=== PATIENT | female | born 1975 | race Caucasian/White ===

== ENCOUNTER 2017-11-20 21:06 | Emergency (ER) ==
[2017-11-20 21:17] VITALS: BP 133/98; TEMP 97.9; BMI 17.4
[2017-11-20] MEDS ORDERED: DILAUDID 2 MG/ML SYRINGE IM STA (21:31)
[2017-11-20] MEDS ORDERED: PHENERGAN 25 MG/ML VIAL IM STA (21:31)
--- NOTE | 2017-11-20 21:54 | CT ---
EXAM: CT of the abdomen pelvis without contrast History: Abdominal pain and nausea, history of chronic pancreatitis. Comparison: CT abdomen pelvis 06/15/2015 Technique: Multiplanar CT images through the upper abdomen pelvis were obtained without the administr ation of IV contrast Findings: Lung bases are clear. No acute osseous abnormalities. Status post cholecystectomy. No focal liver or splenic lesions. No renal stones and no hydronephros is. The appendix is normal. Pancreatic calcifications. Pancreatic duct is dilated in the the pancr eatic body measuring up to 7 mm in caliber. No polly peripancreatic inflammation. Adrenal glands are unremarkable. No dilated loops of bowel. Bladder is not well distended. No focal bladder wall thi ckening. Uterus is not seen. No free air and no ascites. No inflammatory stranding. Impression: 1. No acute intra-abdominal or pelvic process. 2. Pancreatic calcifications consistent with chronic pancreatitis. 3. Dilated pancreatic duct consistent with sequelae of chronic pancreatitis with probable pancreatic duct stricture or calculus causing the duct obstruction.
--- NOTE | 2017-11-20 22:18 | ED.PDOC ---
General ED Provider: Dr. TIMBO AMADOR-ER Chief Complaint: Abdominal Pain Stated Complaint: im hurting and its my pancreatitis Time Seen by Physician: 21:10 Mode of Arrival: Walk-In Information Source: Patient Exam Limitations: No limitations Nursing and Triage Documentation Reviewed and Agree: Yes Does patient meet sepsis criteria?: No System Inflammatory Response Syndrome: Not Applicable Sepsis Protocol: For patient's 13 years and over: Temp is 96.8 and below OR 101 and greater Pulse >90 BPM Resp >20/minute Acutely Altered Mental Status Are patient's symptoms suggestive of a new infection, such as: -Pneumonia -Skin, Soft Tissue -Endocarditis -UTI -Bone, Joint Infection -Implantable Device -Acute Abdominal Infection -Wound Infection -Meningitis -Blood Stream Catheter Infection -Unknown GI Complaint Exam - Abdominal Pain Complaint/Exam Onset: Gradual Duration: several days Symptoms Are: Still present Timing: Constant Initial Severity: Severe Location of Pain: Diffuse Character: Reports: Dull, Aching, Cramping Aggravating: Reports: None Alleviating: Reports: Spontaneous resolution Associated Signs and Symptoms: Reports: Nausea Differential Diagnoses: Bowel Obstruction, Constipation, Pancreatitis, Ureteral Stone, UTI Quality Indicator For Non-Traumatic Chest Pain/Syncope: EKG Performed Review of Systems - Review Of Systems Constitutional: Reports: No symptoms Eyes: Reports: No symptoms Ears, Nose, Mouth, Throat: Reports: No symptoms Respiratory: Reports: No symptoms Cardiac: Reports: No symptoms GI: Reports: Abdominal pain : Reports: No symptoms Musculoskeletal: Reports: No symptoms Skin: Reports: No symptoms Neurological: Reports: No symptoms Endocrine: Reports: No symptoms Hematologic/Lymphatic: Reports: No symptoms All Other Systems: Reviewed and Negative Past Medical History - Past Medical History Previously Healthy: No Endocrine: Reports: Unknown Cardiovascular: Reports: Unknown Respiratory: Reports: Unknown Hematological: Reports: Unknown Gastrointestinal: Reports: Unknown Genitourinary: Reports: Unknown Neuro/Psych: Reports: Unknown Musculoskeletal: Reports: Unknown Cancer: Reports: Unknown Last Menstrual Period: 2001 HYST. - Surgical History General Surgical History: Reports: Unknown - Family History Family History: Reports: Unknown - Social History Smoking Status: Current every day smoker, Light tobacco smoker Hx Substance Use: No Alcohol Screening: None - Immunizations Tetanus Shot up to Date: Yes Physical Exam - Physical Exam Appearance: Well-appearing, No pain distress, Well-nourished Pain Distress: Mild Eyes: [place] ENT: Ears normal, Nose normal, Oropharynx normal Neck: Supple Respiratory: Airway patent Cardiovascular: RRR, Pulses normal, No rub, No murmur GI/: Soft, Nontender, No masses, Bowel sounds normal, No Organomegaly Musculoskeletal: Normal strength, ROM intact, No edema, No calf tenderness Skin: Warm, Dry, Normal color Neurological: Sensation intact, Motor intact, Reflexes intact, Cranial nerves intact, Alert, Oriented Psychiatric: Affect appropriate, Mood appropriate Interpretation - Radiology Interpretation Radiology Interpretation By: Radiologist Radiology Results: Negative Exam Interpreted: CT Scan - EKG Interpretation Time of EKG #1: 22:18 Rate: Tachy Rhythm: Sinus Ectopy: None [place]: NL ST Segment: Normal Interpretation: sinus tachy Re-Evaluation - Re-Evaluation Time of Re-Evaluation: 22:19 Status: Improved Vital Signs Stable: Yes Pain Level: 1 Appearance: NAD Lungs: Clear Skin: Warm and Dry Neuro: Alert and Oriented X3 CV: RRR Critical Care Note - Critical Care Note Total Time (mins): 0 Course - Course Hematology/Chemistry: 11/20/17 21:43 11/20/17 21:43 Orders, Labs, Meds: Lab Review 11/20/17 11/20/17 11/20/17 21:35 21:43 21:43 WBC 13.14 H RBC 4.07 L Hgb 12.7 Hct 37.8 MCV 92.9 MCH 31.2 H MCHC 33.6 RDW Coeff of Jorje 14.7 Plt Count 432 Immature Gran % (Auto) 0.4 Neut % (Auto) 70.7 Lymph % (Auto) 20.0 [place] % (Auto) 7.8 Eos % (Auto) 0.6 Baso % (Auto) 0.5 Immature Gran # (Auto) 0.1 Neut # (Auto) 9.3 H Lymph # (Auto) 2.6 [place] # (Auto) 1.0 Eos # (Auto) 0.1 Baso # (Auto) 0.1 Sodium 139 Potassium 3.5 Chloride 102 Carbon Dioxide 27 Anion Gap 13.5 BUN 6 L Creatinine 0.68 Estimated GFR (MDRD) 95.00 BUN/Creatinine Ratio 8.82 Glucose 128 H Calcium 9.5 Total Bilirubin 0.3 AST 13 L ALT 6 L Alkaline Phosphatase 84 Total Creatine Kinase 16 Troponin I 0.0320 Total Protein 7.7 Albumin 3.1 L Globulin 4.6 Albumin/Globulin Ratio 0.67 Amylase 27 Lipase 41 Urine Color Yellow Urine Clarity Clear Urine pH 6.5 Ur Specific [place] 1.010 Urine Protein Negative Urine Glucose (UA) Negative Urine Ketones Negative Urine Blood 1+ Urine Nitrite Negative Urine Bilirubin Negative Urine Urobilinogen 0.2 Ur Leukocyte Esterase Negative Urine Microscopic RBC 2-5 Ur Squamous Epith Cells 5-10 Orders Category Date Time Status EKG-(ED ONLY) Stat CARDIO 11/20/17 21:29 Ordered AMYLASE Stat LAB 11/20/17 21:43 Completed CBC W/ AUTO DIFF Stat LAB 11/20/17 21:43 Completed COMPREHENSIVE METABOLIC PANEL Stat LAB 11/20/17 21:43 Completed CREATINE KINASE Stat LAB 11/20/17 21:43 Completed LIPASE Stat LAB 11/20/17 21:43 Completed TROPONIN I Stat LAB 11/20/17 21:43 Completed URINALYSIS C & S IF INDICATED Stat LAB 11/20/17 21:35 Completed Hydromorphone HCl/Pf [Dilaudid 2 mg/ml Syringe] MEDS 11/20/17 21:31 Discontinued 2 mg IM ONCE STA Promethazine HCl [Phenergan 25 mg/ml Vial] MEDS 11/20/17 21:31 Discontinued 25 mg IM ONCE STA CT ABDOMEN/PELVIS WO CONTRAST Stat RADS 11/20/17 21:30 Completed Medications Discontinued Medications Generic Name Dose Route Start Last Admin Trade Name Price PRN Reason Stop Dose Admin Hydromorphone HCl 2 mg 11/20/17 21:31 11/20/17 21:37 Dilaudid 2 Mg/Ml Syringe IM 11/20/17 21:32 2 mg ONCE STA Administration Promethazine HCl 25 mg 11/20/17 21:31 11/20/17 21:38 Phenergan 25 Mg/Ml Vial IM 11/20/17 21:32 25 mg ONCE STA Administration Vital Signs: Temp Pulse Resp BP Pulse Ox 11/20/17 21:07 97.9 F 127 H 20 133/98 H 96 Departure - Departure Time of Disposition: 22:21 Disposition: HOME SELF-CARE Discharge Problem: Chronic pancreatitis Qualifiers: Pancreatitis type: unspecified pancreatitis type Qualified Code(s): K86.1 - Other chronic pancreatitis Instructions: Pancreatitis (ED) Condition: Good Pt referred to PMD for follow-up: Yes IPMP verified?: No Additional Instructions: f/u with pcp Allergies/Adverse Reactions: Allergies No Known Allergies Allergy (Unverified 11/20/17 21:17) Home Medications: Ambulatory Orders Clonazepam [Klonopin] 1 mg PO BID 11/20/17 Gabapentin 900 mg PO TID 11/20/17 Magnesium 30 mg PO DAILY 11/20/17 Ondansetron HCl [Zofran] 4 mg PO Q4-6H PRN 11/20/17 Oxycodone HCl [Roxicodone] 15 mg PO QID PRN 11/20/17 Oxycodone HCl/Acetaminophen [Percocet 10-325 mg Tablet] 10 - 325 mg PO 5XD PRN 11/20/17 Potassium Chloride [K-Dur] 40 meq PO DAILY 11/20/17 Promethazine HCl [Phenergan Tab] 25 mg PO Q4-6H PRN 11/20/17 Disposition Discussed With: Patient, Family
== END 2017-11-20 22:23 | disposition home or self-care (01) ==
LOC: ED 21:06
DX: K86.1 Other chronic pancreatitis (principal); F17.210 Nicotine dependence, cigarettes, uncomplicated
CPT/HCPCS: 36415; 80053; 81001; 82150; 82550; 83690; 84484; 85025; 93005; 93010; 96372; 99283

== ENCOUNTER 2017-11-24 23:57 | Emergency (ER) ==
[2017-11-25 00:12] VITALS: BP 112/89; TEMP 99.1; BMI 16.9
--- NOTE | 2017-11-25 00:46 | ED.PDOC ---
General ED Provider: Dr. CEDRICK LOCKE Chief Complaint: Abdominal Pain Stated Complaint: states she has had chronic pancreatitis for years was seen recently in the ER and had a complete work up. CT findings showed chronic pancreatitis. Time Seen by Physician: 00:43 Mode of Arrival: Walk-In Information Source: Patient Exam Limitations: No limitations Primary Care Provider: HEATHER PEDROZA Nursing and Triage Documentation Reviewed and Agree: Yes Does patient meet sepsis criteria?: No System Inflammatory Response Syndrome: Pulse >90 BPM Sepsis Protocol: For patient's 13 years and over: Temp is 96.8 and below OR 101 and greater Pulse >90 BPM Resp >20/minute Acutely Altered Mental Status Are patient's symptoms suggestive of a new infection, such as: -Pneumonia -Skin, Soft Tissue -Endocarditis -UTI -Bone, Joint Infection -Implantable Device -Acute Abdominal Infection -Wound Infection -Meningitis -Blood Stream Catheter Infection -Unknown Review of Systems - Review Of Systems Constitutional: Reports: No symptoms Eyes: Reports: No symptoms Ears, Nose, Mouth, Throat: Reports: No symptoms Respiratory: Reports: No symptoms Cardiac: Reports: No symptoms GI: Reports: Abdominal pain : Reports: No symptoms Musculoskeletal: Reports: No symptoms Skin: Reports: No symptoms Neurological: Reports: No symptoms Endocrine: Reports: No symptoms Hematologic/Lymphatic: Reports: No symptoms All Other Systems: Reviewed and Negative Past Medical History - Past Medical History Previously Healthy: No Endocrine: Reports: Unknown Cardiovascular: Reports: Unknown Respiratory: Reports: Unknown Hematological: Reports: Unknown Gastrointestinal: Reports: Unknown Genitourinary: Reports: Unknown Neuro/Psych: Reports: Unknown Musculoskeletal: Reports: Unknown Cancer: Reports: Unknown Last Menstrual Period: 2001 HYST - Surgical History General Surgical History: Reports: Unknown - Family History Family History: Reports: Unknown - Social History Smoking Status: Current every day smoker, Light tobacco smoker Hx Substance Use: No Alcohol Screening: None - Immunizations Tetanus Shot up to Date: Yes Physical Exam - Physical Exam Appearance: Ill-appearing, Thin Pain Distress: Moderate Neck: Supple Respiratory: Airway patent, Breath sounds clear, Breath sounds equal, Respirations nonlabored Cardiovascular: Tachycardia GI/: Soft, No masses, Tender Neurological: Sensation intact, Alert, Oriented Psychiatric: Anxious Critical Care Note - Critical Care Note Total Time (mins): 0 Comments: Refuses To try Toradol, Bentyl, zofran, only wants Dilaudid which she got last vist states she drove here passing a local ER because it is chrome cleaner wants to get Dilaudid like last time States symptoms area similar to last visit two days ago. Course - Course Vital Signs: Temp Pulse Resp BP Pulse Ox 11/25/17 00:03 99.1 F 143 H 20 112/89 97 Departure - Departure Time of Disposition: 00:45 Disposition: HOME SELF-CARE Discharge Problem: Abdominal pain, Chronic pancreatitis Instructions: Pancreatitis (ED) Condition: Fair Pt referred to PMD for follow-up: Yes IPMP verified?: No Additional Instructions: Follow up with PCP in 1-2 days continue home medications as prescribed Allergies/Adverse Reactions: Allergies No Known Allergies Allergy (Verified 11/25/17 00:11) Home Medications: Ambulatory Orders Clonazepam [Klonopin] 1 mg PO BID 11/20/17 Gabapentin 900 mg PO TID 11/20/17 Magnesium 30 mg PO DAILY 11/20/17 Ondansetron HCl [Zofran] 4 mg PO Q4-6H PRN 11/20/17 Oxycodone HCl [Roxicodone] 15 mg PO QID PRN 11/20/17 Oxycodone HCl/Acetaminophen [Percocet 10-325 mg Tablet] 10 - 325 mg PO 5XD PRN 11/20/17 Potassium Chloride [K-Dur] 40 meq PO DAILY 11/20/17 Promethazine HCl [Phenergan Tab] 25 mg PO Q4-6H PRN 11/20/17 Disposition Discussed With: Patient, Family
== END 2017-11-25 00:50 | disposition home or self-care (01) ==
LOC: ED 23:57
DX: K86.1 Other chronic pancreatitis (principal); F17.210 Nicotine dependence, cigarettes, uncomplicated
CPT/HCPCS: 99283

== ENCOUNTER 2017-12-13 16:03 | Emergency (ER) ==
[2017-12-13 16:03] VITALS: BMI 17.4
[2017-12-13 16:07] VITALS: BP 123/86; TEMP 98.2
== END 2017-12-13 16:18 | disposition left against medical advice (07) ==
LOC: ED 16:03
DX: R10.9 Unspecified abdominal pain (principal)

== ENCOUNTER 2017-12-23 23:32 | Emergency (ER) ==
[2017-12-23 23:44] VITALS: BP 104/71; TEMP 99.7; BMI 17.9
[2017-12-23] MEDS ORDERED: SODIUM CHLORIDE 1,000 ML IV STA (23:57)
[2017-12-24] MEDS ORDERED: NUBAIN IVP STA (00:26)
--- NOTE | 2017-12-24 00:33 | ED.PDOC ---
General ED Provider: Dr. CEDRICK LOCKE Chief Complaint: Abdominal Pain Stated Complaint: I have pancreatitis attack Time Seen by Physician: 00:31 Mode of Arrival: Walk-In Information Source: Patient Exam Limitations: No limitations Primary Care Provider: HEATHER PEDROZA Nursing and Triage Documentation Reviewed and Agree: No Does patient meet sepsis criteria?: No If yes, has appropriate treatment been initiated?: No System Inflammatory Response Syndrome: Not Applicable Sepsis Protocol: For patient's 13 years and over: Temp is 96.8 and below OR 101 and greater Pulse >90 BPM Resp >20/minute Acutely Altered Mental Status Are patient's symptoms suggestive of a new infection, such as: -Pneumonia -Skin, Soft Tissue -Endocarditis -UTI -Bone, Joint Infection -Implantable Device -Acute Abdominal Infection -Wound Infection -Meningitis -Blood Stream Catheter Infection -Unknown GI Complaint Exam - Abdominal Pain Complaint/Exam Onset: Gradual Duration: 2 days Symptoms Are: Still present Timing: Constant Review of Systems - Review Of Systems Constitutional: Reports: No symptoms Eyes: Reports: No symptoms Ears, Nose, Mouth, Throat: Reports: No symptoms Respiratory: Reports: No symptoms Cardiac: Reports: No symptoms GI: Reports: Abdominal pain : Reports: No symptoms Musculoskeletal: Reports: No symptoms Skin: Reports: No symptoms Neurological: Reports: No symptoms Endocrine: Reports: No symptoms Hematologic/Lymphatic: Reports: No symptoms All Other Systems: Reviewed and Negative Past Medical History - Past Medical History Previously Healthy: No Endocrine: Reports: Unknown Cardiovascular: Reports: Unknown Respiratory: Reports: Unknown Hematological: Reports: None Gastrointestinal: Reports: Pancreatitis (chronic ) Genitourinary: Reports: None Neuro/Psych: Reports: Anxiety, Depression Musculoskeletal: Reports: None Cancer: Reports: Unknown Last Menstrual Period: 2001 - Surgical History General Surgical History: Reports: Cholecystectomy, Stent Placement (on pancrease), Other (feeding Tube) - Family History Family History: Reports: Unknown - Social History Smoking Status: Current every day smoker, Light tobacco smoker Hx Substance Use: No Alcohol Screening: None - Immunizations Tetanus Shot up to Date: Yes Physical Exam - Physical Exam Appearance: Ill-appearing, Thin Ill-appearing: Moderate Pain Distress: Severe Neck: Supple Respiratory: Airway patent, Breath sounds clear, Breath sounds equal, Respirations nonlabored Cardiovascular: Pulses normal, No rub, No murmur, Tachycardia GI/: Soft, Tender Musculoskeletal: Normal strength, ROM intact, No edema, No calf tenderness Skin: Warm, Dry, Normal color Neurological: Sensation intact, Motor intact, Reflexes intact, Cranial nerves intact, Alert, Oriented Psychiatric: Anxious Critical Care Note - Critical Care Note Total Time (mins): 0 Course - Course Hematology/Chemistry: 12/23/17 00:15 12/23/17 00:15 Orders, Labs, Meds: Lab Review 12/23/17 12/23/17 00:15 00:15 WBC 11.48 H RBC 3.88 L Hgb 12.0 Hct 36.5 L MCV 94.1 MCH 30.9 MCHC 32.9 RDW Coeff of Jorje 15.2 H Plt Count 276 Immature Gran % (Auto) 0.2 Neut % (Auto) 61.3 Lymph % (Auto) 31.4 [place] % (Auto) 5.8 Eos % (Auto) 0.6 Baso % (Auto) 0.7 Immature Gran # (Auto) 0.0 Neut # (Auto) 7.0 H Lymph # (Auto) 3.6 H [place] # (Auto) 0.7 Eos # (Auto) 0.1 Baso # (Auto) 0.1 Sodium 136 Potassium 3.4 L Chloride 103 Carbon Dioxide 27 Anion Gap 9.4 BUN 6 L Creatinine 0.62 Estimated GFR (MDRD) 106.00 BUN/Creatinine Ratio 9.67 Glucose 94 Calcium 9.2 Total Bilirubin 0.4 AST 22 ALT 13 Alkaline Phosphatase 70 Total Protein 6.9 Albumin 3.0 L Globulin 3.9 Albumin/Globulin Ratio 0.77 Amylase 12 L Lipase 15 Orders Category Date Time Status ED IV/MEDIPORT/POWERPORT .ONCE EMERGENCY 12/23/17 23:57 Active AMYLASE Stat LAB 12/23/17 00:15 Completed CBC W/ AUTO DIFF Stat LAB 12/23/17 00:15 Completed COMPREHENSIVE METABOLIC PANEL Stat LAB 12/23/17 00:15 Completed LIPASE Stat LAB 12/23/17 00:15 Completed 0.9 % Sodium Chloride [Saline Flush] MEDS 12/23/17 23:57 Discontinued 1 syr IVF PRN PRN Nalbuphine HCl [Nubain] MEDS 12/24/17 00:26 Discontinued 10 mg IVP ONCE STA Ondansetron HCl/Pf [Zofran 4 mg/2 ml] MEDS 12/24/17 00:41 Discontinued 4 mg IVP ONCE STA Sodium Chloride 0.9% [Sodium Chloride] 1,000 ml MEDS 12/23/17 23:57 Discontinued IV BOLUS Medications Discontinued Medications Generic Name Dose Route Start Last Admin Trade Name Maksimq PRN Reason Stop Dose Admin Sodium Chloride 1,000 mls @ 1,000 mls/hr 12/23/17 23:57 12/24/17 00:15 Sodium Chloride IV 12/24/17 00:56 1,000 mls/hr BOLUS STA Administration Nalbuphine HCl 10 mg 12/24/17 00:26 12/24/17 00:33 Nubain IVP 12/24/17 00:27 10 mg ONCE STA Administration Ondansetron HCl 4 mg 12/24/17 00:41 12/24/17 00:46 Zofran 4 Mg/2 Ml IVP 12/24/17 00:42 4 mg ONCE STA Administration Sodium Chloride 1 syr 12/23/17 23:57 Saline Flush IVF PRN PRN To flush IV Vital Signs: Temp Pulse Resp BP Pulse Ox 12/23/17 23:36 99.7 F H 129 H 22 104/71 98 Departure - Departure Time of Disposition: 01:30 Disposition: HOME SELF-CARE Discharge Problem: Abdominal pain, Chronic abdominal pain Chronic pancreatitis Qualifiers: Pancreatitis type: unspecified pancreatitis type Qualified Code(s): K86.1 - Other chronic pancreatitis Instructions: Pancreatitis (ED) Condition: Stable Pt referred to PMD for follow-up: No IPMP verified?: No Additional Instructions: Push fluids Follow up with PCP in 3 days Allergies/Adverse Reactions: Allergies No Known Allergies Allergy (Verified 12/13/17 16:09) Home Medications: Ambulatory Orders Clonazepam [Klonopin] 1 mg PO BID 11/20/17 Gabapentin 900 mg PO TID 11/20/17 Magnesium 30 mg PO DAILY 11/20/17 Ondansetron HCl [Zofran] 4 mg PO Q4-6H PRN 11/20/17 Oxycodone HCl [Roxicodone] 15 mg PO QID PRN 11/20/17 Oxycodone HCl/Acetaminophen [Percocet 10-325 mg Tablet] 10 - 325 mg PO 5XD PRN 11/20/17 Potassium Chloride [K-Dur] 40 meq PO DAILY 11/20/17 Disposition Discussed With: Patient, Family
[2017-12-24] MEDS ORDERED: ZOFRAN 4 MG/2 ML IVP STA (00:41)
== END 2017-12-24 01:30 | disposition home or self-care (01) ==
LOC: ED 23:32
DX: K86.1 Other chronic pancreatitis (principal); F17.210 Nicotine dependence, cigarettes, uncomplicated
CPT/HCPCS: 36415; 80053; 82150; 83690; 85025; 96361; 96374; 96375; 99283

== ENCOUNTER 2018-01-24 14:57 | Emergency (ER) | payer MEDICAID, OTHER ==
[2018-01-24 15:00] VITALS: BP 161/115; TEMP 98.3; BMI 17.8
[2018-01-24] MEDS ORDERED: PEPCID IVP STA (16:18)
[2018-01-24] MEDS ORDERED: SODIUM CHLORIDE 500 ML IV STA (16:18)
[2018-01-24] MEDS ORDERED: ZOFRAN 4 MG/2 ML IVP STA (16:18)
[2018-01-24] MEDS ORDERED: DILAUDID 1 MG/ML SYRINGE IVP STA (16:19)
--- NOTE | 2018-01-24 16:21 | ED.PDOC ---
General ED Provider: Dr. TIMBO POPE Chief Complaint: Abdominal Pain Stated Complaint: Severe abdominal pain associated with chronic pancreatitis. Has been experiencing worsening pain with recurrent nausea and vomiting. Also out of her pain meds. Time Seen by Physician: 15:30 Mode of Arrival: Walk-In Information Source: Patient Exam Limitations: No limitations Primary Care Provider: HEATHER PEDROZA Nursing and Triage Documentation Reviewed and Agree: Yes Does patient meet sepsis criteria?: No System Inflammatory Response Syndrome: Pulse >90 BPM, Not Applicable Sepsis Protocol: For patient's 13 years and over: Temp is 96.8 and below OR 101 and greater Pulse >90 BPM Resp >20/minute Acutely Altered Mental Status Are patient's symptoms suggestive of a new infection, such as: -Pneumonia -Skin, Soft Tissue -Endocarditis -UTI -Bone, Joint Infection -Implantable Device -Acute Abdominal Infection -Wound Infection -Meningitis -Blood Stream Catheter Infection -Unknown GI Complaint Exam - Abdominal Pain Complaint/Exam Onset: Sudden Symptoms Are: Still present Timing: Intermittent Initial Severity: Severe Current Severity: Moderate Location of Pain: Discrete, LUQ, Epigastric Radiates To: Reports: Back Character: Reports: Dull, Aching, Throbbing Aggravating: Reports: Movement Alleviating: Reports: None Associated Signs and Symptoms: Reports: Nausea, Vomiting Review of Systems - Review Of Systems Constitutional: Reports: No symptoms Eyes: Reports: No symptoms Ears, Nose, Mouth, Throat: Reports: No symptoms Respiratory: Reports: No symptoms Cardiac: Reports: No symptoms GI: Reports: Abdomen distended, Abdominal pain, Difficulty swallowing, Nausea, Poor appetite, Poor fluid intake, Vomiting : Reports: No symptoms Musculoskeletal: Reports: No symptoms Skin: Reports: No symptoms Neurological: Reports: No symptoms Endocrine: Reports: No symptoms Hematologic/Lymphatic: Reports: No symptoms All Other Systems: Reviewed and Negative Past Medical History - Past Medical History Previously Healthy: No Endocrine: Reports: Unknown Cardiovascular: Reports: Unknown Respiratory: Reports: Unknown Hematological: Reports: None Gastrointestinal: Reports: Pancreatitis (chronic ) Genitourinary: Reports: None Neuro/Psych: Reports: Anxiety, Depression Musculoskeletal: Reports: None Cancer: Reports: Unknown Last Menstrual Period: none - Surgical History General Surgical History: Reports: Cholecystectomy, Stent Placement (on pancrease), Other (feeding Tube) - Family History Family History: Reports: Unknown - Social History Smoking Status: Current every day smoker, Light tobacco smoker Hx Substance Use: No Alcohol Screening: None Physical Exam - Physical Exam Appearance: Ill-appearing, Thin Ill-appearing: Mild Pain Distress: Moderate Eyes: [place], EOMI, Conjunctiva clear ENT: Ears normal, Nose normal, Oropharynx normal Neck: Supple Respiratory: Airway patent, Breath sounds clear, Breath sounds equal, Respirations nonlabored Cardiovascular: RRR, Pulses normal, No rub, No murmur GI/: Soft, Tender, Bowel sounds hyperactive Musculoskeletal: Normal strength, ROM intact, No edema, No calf tenderness Skin: Warm, Dry, Normal color Neurological: Sensation intact, Motor intact, Reflexes intact, Cranial nerves intact, Alert, Oriented Psychiatric: Affect appropriate, Mood appropriate Interpretation - Radiology Interpretation Radiology Interpretation By: Radiologist Radiology Results: No acute changes Exam Interpreted: CT Scan Re-Evaluation - Re-Evaluation Time of Re-Evaluation: 20:15 (Feeling much better) Status: Improved Vital Signs Stable: Yes Appearance: NAD Lungs: Clear Skin: Warm and Dry Additional Comments: Recommend admission for continued fluid administration. Pt req discharge Critical Care Note - Critical Care Note Total Time (mins): 60 Course - Course Hematology/Chemistry: 01/24/18 16:37 01/24/18 20:17 Orders, Labs, Meds: Lab Review 01/24/18 01/24/18 01/24/18 16:37 16:37 16:37 WBC 9.49 RBC 3.80 L Hgb 11.7 L Hct 35.8 L MCV 94.2 MCH 30.8 MCHC 32.7 RDW Coeff of Jorje 14.6 Plt Count 323 Immature Gran % (Auto) 0.3 Neut % (Auto) 64.1 Lymph % (Auto) 26.4 [place] % (Auto) 7.2 Eos % (Auto) 1.4 Baso % (Auto) 0.6 Immature Gran # (Auto) 0.0 Neut # (Auto) 6.1 Lymph # (Auto) 2.5 [place] # (Auto) 0.7 Eos # (Auto) 0.1 Baso # (Auto) 0.1 Sodium 137.3 Potassium 2.71 L* Chloride 98.2 Carbon Dioxide 34.9 H Anion Gap 6.91 BUN 2.2 L Creatinine 0.50 L Estimated GFR (MDRD) 136.00 BUN/Creatinine Ratio 4.40 Glucose 102.4 Lactic Acid Calcium 8.92 Magnesium Total Bilirubin 0.14 L AST 17.5 ALT 7.6 Alkaline Phosphatase 91.1 Total Protein 6.88 Albumin 3.55 Globulin 3.33 Albumin/Globulin Ratio 1.06 Amylase 39.9 Lipase 78.6 Procalcitonin 0.17 01/24/18 01/24/18 01/24/18 16:37 16:37 20:17 WBC RBC Hgb Hct MCV MCH MCHC RDW Coeff of Jorje Plt Count Immature Gran % (Auto) Neut % (Auto) Lymph % (Auto) [place] % (Auto) Eos % (Auto) Baso % (Auto) Immature Gran # (Auto) Neut # (Auto) Lymph # (Auto) [place] # (Auto) Eos # (Auto) Baso # (Auto) Sodium Potassium 3.19 L Chloride Carbon Dioxide Anion Gap BUN Creatinine Estimated GFR (MDRD) BUN/Creatinine Ratio Glucose Lactic Acid 0.85 Calcium Magnesium 1.67 Total Bilirubin AST ALT Alkaline Phosphatase Total Protein Albumin Globulin Albumin/Globulin Ratio Amylase Lipase Procalcitonin Orders Category Date Time Status EKG-(ED ONLY) Stat CARDIO 01/24/18 16:16 Completed IV [ED IV/MEDIPORT/POWERPORT] .ONCE EMERGENCY 01/24/18 16:16 Active AMYLASE Stat LAB 01/24/18 16:37 Completed BLOOD CULTURE (ED ONLY) Stat LAB 01/24/18 16:37 Received CBC W/ AUTO DIFF Stat LAB 01/24/18 16:37 Completed CMP [COMPREHENSIVE METABOLIC PANEL] Stat LAB 01/24/18 16:37 Completed LACTIC ACID Stat LAB 01/24/18 16:37 Completed LIPASE Stat LAB 01/24/18 16:37 Completed MAGNESIUM Stat LAB 01/24/18 16:37 Completed POTASSIUM Stat LAB 01/24/18 20:17 Completed PROCALCITONIN Stat LAB 01/24/18 16:37 Completed 0.9 % Sodium Chloride [Saline Flush] MEDS 01/24/18 16:16 Discontinued 1 syr IVF PRN PRN Famotidine Inj [Pepcid] MEDS 01/24/18 16:18 Discontinued 20 mg IVP ONCE STA Hydromorphone HCl [Dilaudid 1 mg/ml Syringe] MEDS 01/24/18 19:02 Discontinued 2 mg IM ONCE STA Hydromorphone HCl [Dilaudid 1 mg/ml Syringe] MEDS 01/24/18 16:19 Discontinued 2 mg IVP ONCE STA Ondansetron HCl/Pf [Zofran 4 mg/2 ml] MEDS 01/24/18 16:18 Discontinued 4 mg IVP ONCE STA Oxycodone-Acetaminophen 10-325 [Percocet 10-325] MEDS 01/24/18 18:56 Stop Req 1 tab PO ONCE STA Potassium Chloride [Potassium Chloride Premix Run] 20 MEDS 01/24/18 17:02 Discontinued meq Premix 100 ml Water 2 bag IV ONCE Potassium Chloride [Potassium Chloride Premix [place]] 200 MEDS 01/24/18 17:07 Discontinued ml IV .STK-MED Sodium Chloride 0.9% [Sodium Chloride] 500 ml MEDS 01/24/18 16:[address] ABDOMEN/PELVIS WO CONTRAST Stat RADS 01/24/18 16:16 Completed Medications Discontinued Medications Generic Name Dose Route Start Last Admin Trade Name Freq PRN Reason Stop Dose Admin Famotidine 20 mg 01/24/18 16:18 01/24/18 16:53 Pepcid IVP 01/24/18 16:19 20 mg ONCE STA Administration Hydromorphone HCl 2 mg 01/24/18 16:19 01/24/18 16:55 Dilaudid 1 Mg/Ml Syringe IVP 01/24/18 16:20 2 mg ONCE STA Administration Hydromorphone HCl 2 mg 01/24/18 19:02 01/24/18 19:10 Dilaudid 1 Mg/Ml Syringe IM 01/24/18 19:03 2 mg ONCE STA Administration Sodium Chloride 500 mls @ 500 mls/hr 01/24/18 16:18 01/24/18 16:52 Sodium Chloride IV 01/24/18 17:17 500 mls/hr BOLUS STA Administration Potassium Chloride 20 meq/ 200 mls @ 100 mls/hr 01/24/18 17:02 01/24/18 17:13 Sterile Water IV 01/24/18 19:01 100 mls/hr ONCE STA Administration Ondansetron HCl 4 mg 01/24/18 16:18 01/24/18 16:52 Zofran 4 Mg/2 Ml IVP 01/24/18 16:19 4 mg ONCE STA Administration Oxycodone/Acetaminophen 1 tab 01/24/18 18:56 01/24/18 19:12 Percocet 10-325 PO 01/24/18 18:57 Not Given ONCE STA Sodium Chloride 1 syr 01/24/18 16:16 01/24/18 16:52 Saline Flush IVF 1 syr PRN PRN Administration To flush IV Vital Signs: Temp Pulse Resp BP Pulse Ox 01/24/18 14:57 98.3 F 122 H 18 161/115 H 97 Departure - Departure Time of Disposition: 19:50 Disposition: HOME SELF-CARE Discharge Problem: Chronic pancreatitis, Chronic abdominal pain, Hypokalemia Instructions: Pancreatitis (ED), Hypokalemia (ED) Condition: Good Pt referred to PMD for follow-up: Yes IPMP verified?: No Additional Instructions: Meds refilled Take Potasium and supplemental Magnesium to take and follow up pcp next weed for recheck Prescriptions: Magnesium Oxide [Mag-Oxide] 200 mg PO DAILY #15 tablet Ondansetron [Zofran Odt] 4 mg PO Q8H PRN #10 tab.rapdis PRN Reason: Nausea vomiting Oxycodone HCl/Acetaminophen [Oxycodone-Acetaminophen 10-325] 1 each PO Q6-8H PRN #10 tablet PRN Reason: pancreatic/ abdominal pain Potassium Chloride [K-Dur] 20 meq PO DAILY #15 tab Allergies/Adverse Reactions: Allergies No Known Allergies Allergy (Verified 01/24/18 15:00) Home Medications: Ambulatory Orders Clonazepam [Klonopin] 1 mg PO BID 11/20/17 Gabapentin 900 mg PO TID 11/20/17 Magnesium 30 mg PO DAILY 11/20/17 Ondansetron HCl [Zofran] 4 mg PO Q4-6H PRN 11/20/17 Oxycodone HCl [Roxicodone] 15 mg PO QID PRN 11/20/17 Oxycodone HCl/Acetaminophen [Percocet 10-325 mg Tablet] 10 - 325 mg PO 5XD PRN 11/20/17 Potassium Chloride [K-Dur] 40 meq PO DAILY 11/20/17 Magnesium Oxide [Mag-Oxide] 200 mg PO DAILY #15 tablet 01/24/18 Ondansetron [Zofran Odt] 4 mg PO Q8H PRN #10 tab.rapdis 01/24/18 Oxycodone HCl/Acetaminophen [Oxycodone-Acetaminophen 10-325] 1 each PO Q6-8H PRN #10 tablet 01/24/18 Potassium Chloride [K-Dur] 20 meq PO DAILY #15 tab 01/24/18 Disposition Discussed With: Patient, Family ED Physician Progress Note ED Physician Progress Note: [] 01/24/18 20:00 Patient treated for her multiple medical issues including abdominal pain , hypokalemia . Recommeded admission and Dr xie accepted Patient refused to be admitted and stated she had dealt with low K+ previously and requested prescription for home Has received KCL infusion 20 mEq here and will be rechecked before discharge 01/24/18 20:03 Explained risk involved with inadequate potassium level including cardiac arrhythmias that could lead to . Aknowledges the risk and will take KCL as outpatient. Needs to have Potassium level rechecked at physicians office on Friday
--- NOTE | 2018-01-24 16:42 | CT ---
EXAM: CT of the abdomen pelvis without contrast History: Right upper quadrant and left upper quadrant abdominal pain, vomiting and diarrhea. Comparison: CT abdomen pelvis 11/20/2017 Technique: Multiplanar CT images through the abdomen pelvis were obtained without the administration of IV contrast Findings: Lung bases are clear. No acute osseous abnormalities. Status post cholecystectomy. No focal liver or splenic lesions. Atherosclerotic vascular calcificat ions. No change in the pancreatic calcifications and pancreatic duct dilatation. No polly peripancr eatic inflammation. Adrenal glands are unremarkable. No dilated loops of bowel. No free air and no ascites. No bladder wall thickening. Uterus is not seen and likely has been surgically removed. N o perirectal inflammation. No free air and no ascites. Scattered colonic stool. The visualized kayla endix is not dilated or inflamed. No renal or ureteral stones and no hydronephrosis. Impression: 1. No acute intra-abdominal or pelvic process. 2. Chronic pancreatitis
[2018-01-24] MEDS ORDERED: POTASSIUM CHLORIDE PREMIX RUN 20 MEQ in PREMIX 100 ML WATER 2 BAG IV STA (17:02)
[2018-01-24] MEDS ORDERED: POTASSIUM CHLORIDE PREMIX RUN 200 ML IV ONE (17:07)
[2018-01-24] MEDS ORDERED: PERCOCET 10-325 PO STA (18:56)
[2018-01-24] MEDS ORDERED: DILAUDID 1 MG/ML SYRINGE IM STA (19:02)
== END 2018-01-24 20:33 | disposition home or self-care (01) ==
LOC: ED 14:57
DX: K86.1 Other chronic pancreatitis (principal); E87.6 Hypokalemia; R10.9 Unspecified abdominal pain; G89.29 Other chronic pain; R11.2 Nausea with vomiting, unspecified; F17.210 Nicotine dependence, cigarettes, uncomplicated; Z79.899 Other long term (current) drug therapy
CPT/HCPCS: 36415; 80053; 82150; 83605; 83690; 83735; 84132; 84145; 85025; 87040; 93005; 93010; 96361; 96365; 96366; 96375; 99284

== ENCOUNTER 2018-02-04 13:48 | Emergency (ER) ==
[2018-02-04 13:52] VITALS: BP 146/88; TEMP 97.7; BMI 18.3
[2018-02-04] MEDS ORDERED: SODIUM CHLORIDE 1,000 ML IV STA (14:54)
[2018-02-04] MEDS ORDERED: DILAUDID 1 MG/ML SYRINGE IVP STA ×3 (14:55→16:08)
[2018-02-04] MEDS ORDERED: ZOFRAN 4 MG/2 ML IVP STA ×2 (14:55→15:06)
--- NOTE | 2018-02-04 14:57 | ED.PDOC ---
General ED Provider: Dr. [place] ABERNATHY Chief Complaint: Abdominal Pain Stated Complaint: Nausea, Vomiting; history of Pancreatitis - acute abdominal pain Time Seen by Physician: 14:51 Mode of Arrival: Walk-In Information Source: Family Exam Limitations: No limitations Primary Care Provider: HEATHER PEDROZA Nursing and Triage Documentation Reviewed and Agree: Yes Does patient meet sepsis criteria?: No System Inflammatory Response Syndrome: Not Applicable Sepsis Protocol: For patient's 13 years and over: Temp is 96.8 and below OR 101 and greater Pulse >90 BPM Resp >20/minute Acutely Altered Mental Status Are patient's symptoms suggestive of a new infection, such as: -Pneumonia -Skin, Soft Tissue -Endocarditis -UTI -Bone, Joint Infection -Implantable Device -Acute Abdominal Infection -Wound Infection -Meningitis -Blood Stream Catheter Infection -Unknown Review of Systems - Review Of Systems Constitutional: Reports: Malaise, Weakness GI: Reports: Abdominal pain (states same as her pancreeatitis attacks) All Other Systems: Reviewed and Negative Past Medical History - Past Medical History Previously Healthy: No Endocrine: Reports: Unknown Cardiovascular: Reports: Unknown Respiratory: Reports: Unknown Hematological: Reports: None Gastrointestinal: Reports: Pancreatitis (chronic ) Genitourinary: Reports: None Neuro/Psych: Reports: Anxiety, Depression Musculoskeletal: Reports: None Cancer: Reports: Unknown Last Menstrual Period: 10 years ago - Surgical History General Surgical History: Reports: Cholecystectomy, Stent Placement (on pancrease), Other (feeding Tube) - Family History Family History: Reports: Unknown - Social History Smoking Status: Current every day smoker Hx Substance Use: No Alcohol Screening: None - Immunizations Tetanus Shot up to Date: Yes Physical Exam - Physical Exam Appearance: Ill-appearing (chronic appearing) Ill-appearing: Moderate Pain Distress: Moderate Respiratory: Airway patent, Breath sounds clear, Respirations nonlabored Cardiovascular: RRR, Pulses normal Skin: Warm, Dry, Pale Neurological: Sensation intact, Motor intact Psychiatric: Affect appropriate, Mood appropriate Critical Care Note - Critical Care Note Total Time (mins): 25 Course - Course Hematology/Chemistry: 02/04/18 15:05 02/04/18 15:05 Orders, Labs, Meds: Lab Review 02/04/18 02/04/18 15:05 15:05 WBC 5.92 RBC 3.75 L Hgb 11.4 L Hct 35.0 L MCV 93.3 MCH 30.4 MCHC 32.6 RDW Coeff of Jorje 14.6 Plt Count 294 Immature Gran % (Auto) 0.2 Neut % (Auto) 46.4 Lymph % (Auto) 39.7 [place] % (Auto) 10.5 H Eos % (Auto) 2.4 Baso % (Auto) 0.8 Immature Gran # (Auto) 0.0 Neut # (Auto) 2.8 Lymph # (Auto) 2.4 [place] # (Auto) 0.6 Eos # (Auto) 0.1 Baso # (Auto) 0.1 Sodium 139.0 Potassium 3.21 L Chloride 105.5 Carbon Dioxide 29.3 Anion Gap 7.41 BUN 7.8 Creatinine 0.55 L Estimated GFR (MDRD) 122.00 BUN/Creatinine Ratio 14.18 Glucose 86.8 Calcium 8.80 Total Bilirubin 0.41 AST 52.1 H ALT 23.1 Alkaline Phosphatase 83.0 Total Protein 7.06 Albumin 3.59 Globulin 3.47 Albumin/Globulin Ratio 1.03 Lipase 22.7 L Orders Category Date Time Status CBC W/ AUTO DIFF Stat LAB 02/04/18 15:05 Completed COMPREHENSIVE METABOLIC PANEL Stat LAB 02/04/18 15:05 Completed LIPASE Stat LAB 02/04/18 15:05 Completed Hydromorphone HCl [Dilaudid 1 mg/ml Syringe] MEDS 02/04/18 15:06 Discontinued 1 mg IVP ONCE STA Hydromorphone HCl [Dilaudid 1 mg/ml Syringe] MEDS 02/04/18 16:08 Discontinued 1 mg IVP ONCE STA Ondansetron HCl/Pf [Zofran 4 mg/2 ml] MEDS 02/04/18 15:06 Discontinued 4 mg IVP ONCE STA Sodium Chloride 0.9% [Sodium Chloride] 1,000 ml MEDS 02/04/18 14:54 Discontinued IV BOLUS Medications Discontinued Medications Generic Name Dose Route Start Last Admin Trade Name Freq PRN Reason Stop Dose Admin Hydromorphone HCl 1 mg 02/04/18 15:06 02/04/18 15:25 Dilaudid 1 Mg/Ml Syringe IVP 02/04/18 15:07 1 mg ONCE STA Administration Hydromorphone HCl 1 mg 02/04/18 16:08 02/04/18 16:17 Dilaudid 1 Mg/Ml Syringe IVP 02/04/18 16:09 1 mg ONCE STA Administration Sodium Chloride 1,000 mls @ 1,000 mls/hr 02/04/18 14:54 02/04/18 15:23 Sodium Chloride IV 02/04/18 15:53 1,000 mls/hr BOLUS STA Administration Ondansetron HCl 4 mg 02/04/18 15:06 02/04/18 15:23 Zofran 4 Mg/2 Ml IVP 02/04/18 15:07 4 mg ONCE STA Administration Vital Signs: Temp Pulse Resp BP Pulse Ox 02/04/18 13:48 97.7 F 96 H 18 146/88 H 98 Departure - Departure Time of Disposition: 16:24 Disposition: HOME SELF-CARE Discharge Problem: Abdominal pain Instructions: Acute Abdominal Pain (ED) Condition: Stable Pt referred to PMD for follow-up: Yes (Follow up; call for appointment) IPMP verified?: No (known pain medication patient) Allergies/Adverse Reactions: Allergies No Known Allergies Allergy (Verified 01/24/18 15:00) Home Medications: Ambulatory Orders Clonazepam [Klonopin] 1 mg PO BID 11/20/17 Gabapentin 900 mg PO TID 11/20/17 Oxycodone HCl [Roxicodone] 15 mg PO QID PRN 11/20/17 Oxycodone HCl/Acetaminophen [Percocet 10-325 mg Tablet] 10 - 325 mg PO 5XD PRN 11/20/17 Potassium Chloride [K-Dur] 40 meq PO DAILY 11/20/17 Potassium Chloride [K-Dur] 20 meq PO DAILY #15 tab 01/24/18 Promethazine HCl [Phenergan Tab] 25 mg PO Q4-6H PRN 02/04/18
== END 2018-02-04 16:43 | disposition home or self-care (01) ==
LOC: ED 13:48
DX: R10.9 Unspecified abdominal pain (principal); R11.2 Nausea with vomiting, unspecified; F17.210 Nicotine dependence, cigarettes, uncomplicated
CPT/HCPCS: 36415; 80053; 83690; 85025; 96361; 96374; 96375; 96376; 99283

== ENCOUNTER 2018-02-12 15:58 | Emergency (ER) ==
[2018-02-12 16:02] VITALS: BMI 18.1
[2018-02-12] MEDS ORDERED: SODIUM CHLORIDE 1,000 ML IV STA (19:34)
[2018-02-12] MEDS ORDERED: NUBAIN IVP STA (19:34)
[2018-02-12] MEDS ORDERED: ZOFRAN 4 MG/2 ML IVP STA (19:34)
[2018-02-12] MEDS ORDERED: PROTONIX IV IVP STA (19:34)
--- NOTE | 2018-02-12 20:28 | ED.PDOC ---
General ED Provider: Dr. CEDRICK LOCKE Chief Complaint: Abdominal Pain Stated Complaint: Patient comes to the ER with a history of chronic pancreatitis with 3 day history of abdominal pain. Has been taking oxycodone without relief. Time Seen by Physician: 20:18 Mode of Arrival: Walk-In Information Source: Patient Exam Limitations: No limitations Primary Care Provider: HEATHER PEDROZA Nursing and Triage Documentation Reviewed and Agree: Yes Does patient meet sepsis criteria?: No System Inflammatory Response Syndrome: Pulse >90 BPM, Not Applicable Sepsis Protocol: For patient's 13 years and over: Temp is 96.8 and below OR 101 and greater Pulse >90 BPM Resp >20/minute Acutely Altered Mental Status Are patient's symptoms suggestive of a new infection, such as: -Pneumonia -Skin, Soft Tissue -Endocarditis -UTI -Bone, Joint Infection -Implantable Device -Acute Abdominal Infection -Wound Infection -Meningitis -Blood Stream Catheter Infection -Unknown Review of Systems - Review Of Systems Constitutional: Reports: No symptoms Eyes: Reports: No symptoms Ears, Nose, Mouth, Throat: Reports: No symptoms Respiratory: Reports: No symptoms Cardiac: Reports: No symptoms GI: Reports: Abdominal pain, Nausea, Poor appetite, Poor fluid intake, Vomiting : Reports: No symptoms Musculoskeletal: Reports: No symptoms Skin: Reports: No symptoms Neurological: Reports: No symptoms Endocrine: Reports: No symptoms Hematologic/Lymphatic: Reports: No symptoms All Other Systems: Reviewed and Negative Past Medical History - Past Medical History Previously Healthy: No Endocrine: Reports: Unknown Cardiovascular: Reports: Unknown Respiratory: Reports: Unknown Hematological: Reports: None Gastrointestinal: Reports: Pancreatitis (chronic ) Genitourinary: Reports: None Neuro/Psych: Reports: Anxiety, Depression Musculoskeletal: Reports: None Cancer: Reports: Unknown Last Menstrual Period: n/a - Surgical History General Surgical History: Reports: Cholecystectomy, Stent Placement (on pancrease), Other (feeding Tube) - Family History Family History: Reports: Unknown - Social History Smoking Status: Current every day smoker Hx Substance Use: No Alcohol Screening: None Physical Exam - Physical Exam Appearance: Ill-appearing Ill-appearing: Mild Pain Distress: Moderate Respiratory: Airway patent, Breath sounds clear, Breath sounds equal, Respirations nonlabored Cardiovascular: Pulses normal, Tachycardia GI/: Tender Musculoskeletal: Normal strength, ROM intact, No edema, No calf tenderness Skin: Warm, Dry, Normal color Neurological: Sensation intact, Motor intact, Reflexes intact, Cranial nerves intact, Alert, Oriented Psychiatric: Anxious Critical Care Note - Critical Care Note Total Time (mins): 0 Course - Course Hematology/Chemistry: 02/12/18 19:50 02/12/18 19:50 Orders, Labs, Meds: Lab Review 02/12/18 02/12/18 02/12/18 19:50 19:50 21:26 WBC 9.57 RBC 4.23 Hgb 12.8 Hct 39.0 MCV 92.2 MCH 30.3 MCHC 32.8 RDW Coeff of Jorje 14.3 Plt Count 353 Immature Gran % (Auto) 0.4 Neut % (Auto) 80.9 Lymph % (Auto) 14.8 [place] % (Auto) 3.3 Eos % (Auto) 0.1 Baso % (Auto) 0.5 Immature Gran # (Auto) 0.0 Neut # (Auto) 7.7 H Lymph # (Auto) 1.4 [place] # (Auto) 0.3 L Eos # (Auto) 0.0 Baso # (Auto) 0.1 Sodium 136.2 L Potassium 3.82 Chloride 99.9 Carbon Dioxide 31.4 H Anion Gap 8.72 BUN 4.7 L Creatinine 0.51 L Estimated GFR (MDRD) 133.00 BUN/Creatinine Ratio 9.21 Glucose 131.8 H Calcium 9.58 Total Bilirubin 0.29 AST 31.5 ALT 14.6 Alkaline Phosphatase 92.3 Total Protein 8.13 Albumin 4.36 Globulin 3.77 Albumin/Globulin Ratio 1.15 Amylase 33.8 Lipase 21.5 L Urine Color Yellow Urine Clarity Slightly Urine pH 7.5 Ur Specific [place] 1.015 Urine Protein Negative Urine Glucose (UA) Negative Urine Ketones Negative Urine Blood 2+ Urine Nitrite Negative Urine Bilirubin Negative Urine Urobilinogen 0.2 Ur Leukocyte Esterase Negative Urine Microscopic RBC 5-10 Urine Microscopic WBC 2-5 Ur Squamous Epith Cells 10-20 Urine Bacteria Trace Orders Category Date Time Status ED IV/MEDIPORT/POWERPORT .ONCE EMERGENCY 02/12/18 19:34 Active AMYLASE Stat LAB 02/12/18 19:50 Completed CBC W/ AUTO DIFF Stat LAB 02/12/18 19:50 Completed COMPREHENSIVE METABOLIC PANEL Stat LAB 02/12/18 19:50 Completed LIPASE Stat LAB 02/12/18 19:50 Completed URINALYSIS C & S IF INDICATED Stat LAB 02/12/18 21:26 Completed 0.9 % Sodium Chloride [Saline Flush] MEDS 02/12/18 19:34 Discontinued 1 syr IVF PRN PRN Nalbuphine HCl [Nubain] MEDS 02/12/18 19:34 Discontinued 10 mg IVP ONCE STA Ondansetron HCl/Pf [Zofran 4 mg/2 ml] MEDS 02/12/18 19:34 Discontinued 4 mg IVP ONCE STA Pantoprazole Sodium [Protonix IV] MEDS 02/12/18 19:34 Discontinued 40 mg IVP ONCE STA Sodium Chloride 0.9% [Sodium Chloride] 1,000 ml MEDS 02/12/18 19:34 Discontinued IV BOLUS Medications Discontinued Medications Generic Name Dose Route Start Last Admin Trade Name Freq PRN Reason Stop Dose Admin Sodium Chloride 1,000 mls @ 1,000 mls/hr 02/12/18 19:34 02/12/18 19:59 Sodium Chloride IV 02/12/18 20:33 1,000 mls/hr BOLUS STA Administration Nalbuphine HCl 10 mg 02/12/18 19:34 02/12/18 19:59 Nubain IVP 02/12/18 19:35 10 mg ONCE STA Administration Ondansetron HCl 4 mg 02/12/18 19:34 02/12/18 19:59 Zofran 4 Mg/2 Ml IVP 02/12/18 19:35 4 mg ONCE STA Administration Pantoprazole Sodium 40 mg 02/12/18 19:34 02/12/18 19:59 Protonix Iv IVP 02/12/18 19:35 40 mg ONCE STA Administration Sodium Chloride 1 syr 02/12/18 19:34 Saline Flush IVF PRN PRN To flush IV Vital Signs: Temp Pulse Resp BP Pulse Ox 02/12/18 21:18 98.7 F 02/12/18 21:17 107 H 157/95 H 95 02/12/18 16:00 99.7 F H 113 H 20 171/99 H 97 Departure - Departure Time of Disposition: 21:11 Disposition: HOME SELF-CARE Discharge Problem: Chronic abdominal pain Instructions: Chronic Abdominal Pain (ED) Condition: Fair Pt referred to PMD for follow-up: Yes IPMP verified?: No Additional Instructions: continue home medications Follow up with PCP in 3 days Allergies/Adverse Reactions: Allergies No Known Allergies Allergy (Verified 02/12/18 16:02) Home Medications: Ambulatory Orders Clonazepam [Klonopin] 1 mg PO BID 11/20/17 Gabapentin 900 mg PO TID 11/20/17 Oxycodone HCl [Roxicodone] 15 mg PO QID PRN 11/20/17 Oxycodone HCl/Acetaminophen [Percocet 10-325 mg Tablet] 10 - 325 mg PO 5XD PRN 11/20/17 Potassium Chloride [K-Dur] 20 meq PO DAILY #15 tab 01/24/18 Promethazine HCl [Phenergan Tab] 25 mg PO Q4-6H PRN 02/04/18 Disposition Discussed With: Patient, Family
[2018-02-12 21:17] VITALS: BP 157/95
[2018-02-12 21:18] VITALS: TEMP 98.7
== END 2018-02-12 21:30 | disposition home or self-care (01) ==
LOC: ED 15:58
DX: R10.9 Unspecified abdominal pain (principal); G89.29 Other chronic pain; K86.1 Other chronic pancreatitis; F17.210 Nicotine dependence, cigarettes, uncomplicated
CPT/HCPCS: 36415; 80053; 81001; 82150; 83690; 85025; 96361; 96374; 96375; 99283

== ENCOUNTER 2018-02-18 17:24 | Emergency (ER) ==
[2018-02-18 17:30] VITALS: BP 135/84; TEMP 99.2; BMI 18.8
--- NOTE | 2018-02-18 18:03 | ED.PDOC ---
General ED Provider: Dr. SHADY GOLDSTEIN Chief Complaint: Abdominal Pain Stated Complaint: abdominal pain epigastric Time Seen by Physician: 17:30 Mode of Arrival: Walk-In Information Source: Patient Exam Limitations: No limitations Primary Care Provider: HEATHER PEDROZA Nursing and Triage Documentation Reviewed and Agree: Yes Does patient meet sepsis criteria?: No System Inflammatory Response Syndrome: Not Applicable Sepsis Protocol: For patient's 13 years and over: Temp is 96.8 and below OR 101 and greater Pulse >90 BPM Resp >20/minute Acutely Altered Mental Status Are patient's symptoms suggestive of a new infection, such as: -Pneumonia -Skin, Soft Tissue -Endocarditis -UTI -Bone, Joint Infection -Implantable Device -Acute Abdominal Infection -Wound Infection -Meningitis -Blood Stream Catheter Infection -Unknown Review of Systems - Review Of Systems Constitutional: Reports: No symptoms Eyes: Reports: No symptoms Ears, Nose, Mouth, Throat: Reports: No symptoms Respiratory: Reports: No symptoms Cardiac: Reports: No symptoms GI: Reports: Abdominal pain, Nausea : Reports: No symptoms Musculoskeletal: Reports: No symptoms Skin: Reports: No symptoms Neurological: Reports: No symptoms Endocrine: Reports: No symptoms Hematologic/Lymphatic: Reports: No symptoms All Other Systems: Reviewed and Negative Past Medical History - Past Medical History Previously Healthy: No Endocrine: Reports: Unknown Cardiovascular: Reports: Unknown Respiratory: Reports: Unknown Hematological: Reports: None Gastrointestinal: Reports: Pancreatitis (chronic ) Genitourinary: Reports: None Neuro/Psych: Reports: Anxiety, Depression Musculoskeletal: Reports: None Cancer: Reports: Unknown Last Menstrual Period: hysterectomy - Surgical History General Surgical History: Reports: Cholecystectomy, Stent Placement (on pancrease), Other (feeding Tube) - Family History Family History: Reports: Unknown - Social History Smoking Status: Current every day smoker, Light tobacco smoker Hx Substance Use: No Alcohol Screening: None Physical Exam - Physical Exam Appearance: Well-appearing, No pain distress, Well-nourished Eyes: [place], EOMI, Conjunctiva clear ENT: Ears normal, Nose normal, Oropharynx normal Respiratory: Airway patent, Breath sounds clear, Breath sounds equal, Respirations nonlabored Cardiovascular: RRR, Pulses normal, No rub, No murmur GI/: Soft, Nontender, No masses, Bowel sounds normal, No Organomegaly Musculoskeletal: Normal strength, ROM intact, No edema, No calf tenderness Skin: Warm, Dry, Normal color Neurological: Sensation intact, Motor intact, Reflexes intact, Cranial nerves intact, Alert, Oriented Psychiatric: Affect appropriate, Mood appropriate Interpretation - Radiology Interpretation Radiology Interpretation By: Radiologist Critical Care Note - Critical Care Note Total Time (mins): 0 Course - Course Orders, Labs, Meds: Orders Category Date Time Status AMYLASE Stat LAB 02/18/18 18:17 Received CBC W/ AUTO DIFF Stat LAB 02/18/18 18:17 Received COMPREHENSIVE METABOLIC PANEL Stat LAB 02/18/18 18:17 Received LIPASE Stat LAB 02/18/18 18:[address] ABDOMEN/PELVIS WO CONTRAST Stat RADS 02/18/18 18:00 Taken Vital Signs: Temp Pulse Resp BP Pulse Ox 02/18/18 17:24 99.2 F 112 H 20 135/84 97 Departure - Departure Time of Disposition: 19:00 Disposition: HOME SELF-CARE Discharge Problem: Abdominal pain Instructions: Abdominal Pain (ED) Condition: Good Pt referred to PMD for follow-up: Yes IPMP verified?: No Additional Instructions: Please call your Family Physician as soon as possible to schedule a follow-up appointment. Allergies/Adverse Reactions: Allergies No Known Allergies Allergy (Verified 02/18/18 17:31) Home Medications: Ambulatory Orders Clonazepam [Klonopin] 1 mg PO BID 11/20/17 Gabapentin 900 mg PO TID 11/20/17 Oxycodone HCl [Roxicodone] 15 mg PO QID PRN 11/20/17 Oxycodone HCl/Acetaminophen [Percocet 10-325 mg Tablet] 10 - 325 mg PO 5XD PRN 11/20/17 Potassium Chloride [K-Dur] 20 meq PO DAILY #15 tab 01/24/18 Promethazine HCl [Phenergan Tab] 25 mg PO Q4-6H PRN 02/04/18 Disposition Discussed With: Patient
--- NOTE | 2018-02-18 18:32 | CT ---
EXAM: CT of the abdomen and pelvis without contrast. HISTORY: Pain. History of pancreatitis. PROCEDURE: Contiguous axial CT images of the abdomen and pelvis without contrast with coronal and sa gittal reformats. FINDINGS: The liver is normal in appearance. The gallbladder is surgically absent. There are calcifi cations in the pancreas consistent with chronic pancreatitis. No CT evidence of acute pancreatitis. The spleen, adrenal glands and kidneys are normal in appearance. The abdominal aorta is within arleth l limits in diameter. There are a few loops of air-filled small bowel measuring up to 3.[address] No bowel obstruction. The appendix and colon are normal in appearance. No free fluid or free a ir in the abdomen or pelvis. The bladder is minimally filled with no abnormality identified. The uter us is surgically absent. The bones and soft tissues are unremarkable. Impression: Nonspecific nonobstructive bowel gas pattern as described. Calcifications in the pancreas consistent with chronic pancreatitis. No CT evidence of acute pancrea titis. Cholecystectomy. Hysterectomy.
[2018-02-18] MEDS ORDERED: DILAUDID 0.5 MG/0.5 ML SYRINGE IM STA (18:35)
[2018-02-18] MEDS ORDERED: ZOFRAN 4 MG/2 ML IM STA (18:36)
[2018-02-18] MEDS ORDERED: POTASSIUM CHL 10% ORAL SOL PO STA (18:56)
== END 2018-02-18 19:19 | disposition home or self-care (01) ==
LOC: ED 17:24
DX: R10.9 Unspecified abdominal pain (principal); R11.0 Nausea; E87.6 Hypokalemia; Z79.899 Other long term (current) drug therapy; F17.210 Nicotine dependence, cigarettes, uncomplicated
CPT/HCPCS: 36415; 80053; 82150; 83690; 85025; 96372; 99283

== ENCOUNTER 2018-02-19 19:00 | Emergency (ER) ==
[2018-02-19 19:00] VITALS: BMI 18.8
[2018-02-19 19:03] VITALS: BP 162/84; TEMP 99.4
== END 2018-02-19 19:08 | disposition left against medical advice (07) ==
LOC: ED 19:00
DX: R10.9 Unspecified abdominal pain (principal)
CPT/HCPCS: 74176

== ENCOUNTER 2018-06-04 17:33 | Emergency (ER) ==
[2018-06-04 17:39] VITALS: BP 132/88; TEMP 98.4; BMI 19.4
== END 2018-06-04 18:35 | disposition left against medical advice (07) ==
LOC: ED 17:33
DX: R10.9 Unspecified abdominal pain (principal); R11.0 Nausea; F17.210 Nicotine dependence, cigarettes, uncomplicated

== ENCOUNTER 2018-06-07 16:24 | Emergency (ER) ==
[2018-06-07 16:28] VITALS: BP 116/79; TEMP 98.3; BMI 19.1
--- NOTE | 2018-06-07 17:40 | ED.PDOC ---
General ED Provider: Dr. TIMBO POPE Chief Complaint: Abdominal Pain Stated Complaint: Worsening abdominal pain from chronic pancreatitis. Has taken percocet but having significant nauea and vomitig. Time Seen by Physician: 16:45 Mode of Arrival: Walk-In Information Source: Patient Exam Limitations: No limitations Primary Care Provider: HEATHER PEDROZA Nursing and Triage Documentation Reviewed and Agree: Yes Does patient meet sepsis criteria?: No System Inflammatory Response Syndrome: Not Applicable Sepsis Protocol: For patient's 13 years and over: Temp is 96.8 and below OR 101 and greater Pulse >90 BPM Resp >20/minute Acutely Altered Mental Status Are patient's symptoms suggestive of a new infection, such as: -Pneumonia -Skin, Soft Tissue -Endocarditis -UTI -Bone, Joint Infection -Implantable Device -Acute Abdominal Infection -Wound Infection -Meningitis -Blood Stream Catheter Infection -Unknown GI Complaint Exam - Abdominal Pain Complaint/Exam Onset: Gradual Duration: 2 days- chronic Symptoms Are: Still present Timing: Intermittent Initial Severity: Moderate Current Severity: Moderate Location of Pain: LUQ, Epigastric Radiates To: Reports: Back Character: Reports: Sharp, Aching, Cramping, Colicky Aggravating: Reports: Movement, Food Alleviating: Reports: Medication Associated Signs and Symptoms: Reports: Decreased appetite, Nausea, Vomiting. Denies: Diaphoresis, Fever, Cough, Chest pain, Dizziness, Back pain, Constipation, Blood in stool, Dysuria, Urinary frequency, Decreased urine output , Vaginal bleeding, Vaginal discharge, Diarrhea, Sore throat, Decreased activity Related History: Reports: Similar episode Differential Diagnoses: Pancreatitis Review of Systems - Review Of Systems Constitutional: Reports: Weakness Eyes: Reports: No symptoms Ears, Nose, Mouth, Throat: Reports: No symptoms Respiratory: Reports: No symptoms Cardiac: Reports: No symptoms GI: Reports: Abdominal pain, Nausea, Poor fluid intake, Vomiting : Reports: No symptoms Musculoskeletal: Reports: No symptoms Skin: Reports: No symptoms Neurological: Reports: No symptoms Endocrine: Reports: No symptoms Hematologic/Lymphatic: Reports: No symptoms All Other Systems: Reviewed and Negative Past Medical History - Past Medical History Previously Healthy: No Endocrine: Reports: Unknown Cardiovascular: Reports: Unknown Respiratory: Reports: Unknown Hematological: Reports: None Gastrointestinal: Reports: Pancreatitis (chronic ) Genitourinary: Reports: None Neuro/Psych: Reports: Anxiety, Depression Musculoskeletal: Reports: None Cancer: Reports: Unknown Last Menstrual Period: n/a - Surgical History General Surgical History: Reports: Cholecystectomy, Stent Placement (on pancrease), Other (feeding Tube) - Family History Family History: Reports: Unknown - Social History Smoking Status: Current every day smoker, Light tobacco smoker Hx Substance Use: No (Has oxycontin) Alcohol Screening: None Physical Exam - Physical Exam Appearance: Ill-appearing, Thin Ill-appearing: Moderate Pain Distress: Moderate Eyes: [place], EOMI, Conjunctiva clear, Right pupil size (4 mm), Left pupil size ( 4 mm) ENT: Ears normal, Nose normal, Oropharynx normal Neck: Supple Respiratory: Airway patent, Breath sounds clear, Breath sounds equal, Respirations nonlabored Cardiovascular: RRR, Pulses normal, No rub, No murmur GI/: Soft, Tender, Bowel sounds hypoactive Musculoskeletal: Normal strength, ROM intact, No edema, No calf tenderness Skin: Warm, Dry Neurological: Sensation intact, Motor intact, Reflexes intact, Cranial nerves intact, Alert, Oriented Psychiatric: Anxious Critical Care Note - Critical Care Note Total Time (mins): 0 Course - Course Orders, Labs, Meds: Orders Category Date Time Status Hydromorphone HCl [Dilaudid 1 mg/ml Syringe] MEDS 06/07/18 17:46 Discontinued 1 mg IM ONCE STA Ondansetron HCl/Pf [Zofran 4 mg/2 ml] MEDS 06/07/18 17:48 Discontinued 4 mg IM ONCE STA Medications Discontinued Medications Generic Name Dose Route Start Last Admin Trade Name Freq PRN Reason Stop Dose Admin Hydromorphone HCl 1 mg 06/07/18 17:46 06/07/18 17:56 Dilaudid 1 Mg/Ml Syringe IM 06/07/18 17:47 1 mg ONCE STA Administration Ondansetron HCl 4 mg 06/07/18 17:48 06/07/18 17:55 Zofran 4 Mg/2 Ml IM 06/07/18 17:49 4 mg ONCE STA Administration Vital Signs: Temp Pulse Resp BP Pulse Ox 06/07/18 16:24 98.3 F 100 H 20 116/79 95 Departure - Departure Time of Disposition: 18:20 Disposition: HOME SELF-CARE Discharge Problem: Chronic abdominal pain, Chronic pancreatitis Instructions: Pancreatitis (ED), Chronic Abdominal Pain (ED) Condition: Fair Pt referred to PMD for follow-up: Yes IPMP verified?: No Additional Instructions: Remain on current meds and follow up with PCP in next week Allergies/Adverse Reactions: Allergies No Known Allergies Allergy (Verified 06/07/18 16:28) Home Medications: Ambulatory Orders Clonazepam [Klonopin] 1 mg PO BID 11/20/17 Gabapentin 900 mg PO TID 11/20/17 Oxycodone HCl [Roxicodone] 15 mg PO QID PRN 11/20/17 Oxycodone HCl/Acetaminophen [Percocet 10-325 mg Tablet] 10 - 325 mg PO 5XD PRN 11/20/17 Potassium Chloride [K-Dur] 20 meq PO DAILY #15 tab 01/24/18 Promethazine HCl [Phenergan Tab] 25 mg PO Q4-6H PRN 02/04/18 Fluoxetine HCl [Prozac] 60 mg PO DAILY 06/07/18 Lipase/Protease/Amylase [[place] Cat 12,000 Units Capsule] 1 cap PO TIDAC 06/07/18 Disposition Discussed With: Patient, Family
[2018-06-07] MEDS: ZOFRAN 4 MG/2 ML IM STA (17:55)
[2018-06-07] MEDS: DILAUDID 1 MG/ML SYRINGE IM STA (17:56)
== END 2018-06-07 18:36 | disposition home or self-care (01) ==
LOC: ED 16:24
DX: K86.1 Other chronic pancreatitis (principal); R10.9 Unspecified abdominal pain; G89.29 Other chronic pain; F17.210 Nicotine dependence, cigarettes, uncomplicated; Z79.899 Other long term (current) drug therapy
CPT/HCPCS: 96372; 99282

== ENCOUNTER 2018-07-17 17:05 | Emergency (ER) ==
[2018-07-17 17:11] VITALS: BP 112/84; TEMP 98.2; BMI 19.4
== END 2018-07-17 17:25 | disposition left against medical advice (07) ==
LOC: ED 17:05
DX: R10.9 Unspecified abdominal pain (principal)